=== PATIENT | male | born 1955 | race African-American/Black ===

== ENCOUNTER 2022-03-12 20:31 | Inpatient (IN) | payer OTHER ==
[~2022-03-12] VITALS: Ht 175.3 cm; Wt 75.5 kg
[2022-03-12 20:43] VITALS: BP 118/52
[2022-03-12 21:07] LABS: HEMATOCRIT 22.1 % (42.0-52.0); MEAN CELL VOLUME 86.7 fl (80.0-94.0); MEAN CORPUSCULAR HGB 25.9 pg (27.0-31.0); MEAN CORPUSCULAR HGB CONC 29.9 g/dl (33.0-37.0); MEAN PLATELET VOLUME 11.5 fl (9.6-12.3); PLATELET COUNT AUTOMATED 290 10*3/uL (130-400); RED BLOOD COUNT 2.55 10*6/uL (4.50-5.90); RED CELL DISTRI WIDTH 16.5 % (0-14.5); WHITE BLOOD COUNT 12.1 10*3/uL (4.8-10.8)
[2022-03-12 21:08] LABS: MANUAL DIFF REFLEX YES
[2022-03-12 21:28] LABS: CREATININE 2.02 mg/dL (0.70-1.30); TOTAL PROTEIN 8.8 gm/dL (6.4-8.2)
[2022-03-12 21:29] LABS: BASOPHILS 1 % (0-1); TOTAL CELLS COUNTED 100 #CELLS
[2022-03-12 21:30] LABS: TARGET CELLS FEW
[2022-03-12 21:31] LABS: PLATELET SUFFICIENCY NORMAL (NORMAL)
[2022-03-12 21:36] LABS: POTASSIUM 4.5 mmol/L (3.5-5.1)
[2022-03-12 21:49] LABS: BILIRUBIN Negative (Negative); BLOOD Negative (Negative); CLARITY Clear (Clear); COLOR Yellow (Yellow); GLUCOSE Negative (Negative); KETONE Negative (Negative); LEUKO ESTERASE Negative (Negative); NITRITE Negative (Negative); SPECIFIC GRAVITY 1.015 (1.001-1.030)
[2022-03-12 22:00] LABS: BACTERIA TRACE; EPITHELIAL CELLS 0-2
[2022-03-12 22:54] VITALS: BP 115/58
[2022-03-12 23:23] VITALS: BP 97/49
[2022-03-13] VITALS (21 sets, daily range): BP systolic 90–111; BP diastolic 40–58
[2022-03-13] MEDS ORDERED: AMMONIUM LACTA385 GM T (03:05)
[2022-03-13] MEDS ORDERED: ASPIRIN ADULT L81 M1 PO (03:06)
[2022-03-13] MEDS ORDERED: VITAMIN C500 M8 PO (03:06)
[2022-03-13] MEDS ORDERED: ATORVASTATIN CA40 M1 PO (03:07)
[2022-03-13] MEDS ORDERED: DULCOLAX10 M1 R (03:07)
[2022-03-13] MEDS ORDERED: ELIQUIS5 M1 PO (03:08)
[2022-03-13] MEDS ORDERED: ENOXAPARIN80 MG/0.2 SQ (03:09)
[2022-03-13] MEDS ORDERED: GOOD SENSE ACID20 MG PO (03:09)
[2022-03-13] MEDS ORDERED: FERROUS SU300 MG/5 M PO (03:10)
[2022-03-13] MEDS ORDERED: NATURE'S BLEND F1 MG PO (03:11)
[2022-03-13] MEDS ORDERED: FLEET ENEMA EX230 M1 R (03:11)
[2022-03-13] MEDS ORDERED: HUMALOG100 UNIT/2 SQ (03:12)
[2022-03-13] MEDS ORDERED: KEPPRA500 MG PO (03:13)
[2022-03-13] MEDS ORDERED: Ipratropium Brom3 ML INH (03:13)
[2022-03-13] MEDS ORDERED: NOVOLIN 70100 UNIT/1 SQ (03:14)
[2022-03-13] MEDS ORDERED: MILK OF MA2400 MG/10 PO (03:14)
[2022-03-13] MEDS ORDERED: PEG3350238 GM PO (03:16)
[2022-03-13] MEDS ORDERED: SENNA LAX8.6 M1 PO (03:16)
[2022-03-13] MEDS ORDERED: NATURE'S BLEND100 M2 PO (03:17)
[2022-03-13] MEDS ORDERED: VITAMIN D31250 MCG PO (03:18)
[2022-03-13 05:16] LABS: ABG BASE EXCESS 4.8 mmol/L (-2.0-2.0); ARTERIAL BLOOD GAS PH 7.38 (7.35-7.45); ARTERIAL BLOOD GAS PO2 148.5 (80-90)
[2022-03-13 05:22] LABS: ALKALINE PHOSPHATASE 84 U/L (45-117); BUN 74 mg/dl (7-24); CHLORIDE 101 mmol/L (98-107); CREATININE 1.91 mg/dL (0.70-1.30); FREE T4 1.76 ng/dl (0.76-1.46); SGOT/AST 23 IU/L (3-35); SGPT/ALT 14 U/L (12-78); SODIUM 139 mmol/L (136-145); TRIGLYCERIDES 51 mg/dl (<150)
[2022-03-13 05:27] LABS: CHOLESTEROL < 50 mg/dL (<200); LDL CHOLESTEROL 22 mg/dL (9-159)
[2022-03-13 06:15] LABS: MEAN CELL VOLUME 87.3 fl (80.0-94.0); MEAN CORPUSCULAR HGB 26.2 pg (27.0-31.0); MEAN PLATELET VOLUME 11.6 fl (9.6-12.3); PLATELET COUNT AUTOMATED 282 10*3/uL (130-400); RED BLOOD COUNT 2.29 10*6/uL (4.50-5.90); RED CELL DISTRI WIDTH 16.6 % (0-14.5); WHITE BLOOD COUNT 11.4 10*3/uL (4.8-10.8)
[2022-03-13 06:23] LABS: INTERNATIONAL NORM RATIO 1.1 (2.0-3.5)
[2022-03-13 06:25] LABS: MANUAL DIFF REFLEX YES
[2022-03-13 07:19] LABS: BASOPHILS 1 % (0-1); PLATELET SUFFICIENCY NORMAL (NORMAL); ROULEAUX MODERATE; TOTAL CELLS COUNTED 100 #CELLS
[2022-03-14] VITALS (7 sets, daily range): BP systolic 86–107; BP diastolic 44–65
[2022-03-14 00:50] LABS: BASO % 0.1 % (0.0-1.0); HEMATOCRIT 31.6 % (42.0-52.0); LYMPH % 11.5 % (27.0-41.0); MEAN CELL VOLUME 87.5 fl (80.0-94.0); MEAN CORPUSCULAR HGB 26.6 pg (27.0-31.0); MEAN CORPUSCULAR HGB CONC 30.4 g/dl (33.0-37.0); MONO # 0.3 10*3/uL (0.1-1.0); MONO % 3.5 % (3.0-9.0); NEUT # 7.5 10*3/uL (2.3-7.9); NEUT % 84.5 % (47.0-73.0); PLATELET COUNT AUTOMATED 323 10*3/uL (130-400); RED BLOOD COUNT 3.61 10*6/uL (4.50-5.90); RED CELL DISTRI WIDTH 15.8 % (0-14.5); WHITE BLOOD COUNT 8.9 10*3/uL (4.8-10.8)
[2022-03-14 05:09] LABS: CREATININE 2.22 mg/dL (0.70-1.30); TOTAL PROTEIN 8.3 gm/dL (6.4-8.2)
[2022-03-14 05:11] LABS: POTASSIUM 5.1 mmol/L (3.5-5.1)
[2022-03-14 06:24] LABS: BASO % 0.1 % (0.0-1.0); HEMATOCRIT 28.4 % (42.0-52.0); LYMPH # 0.9 10*3/uL (1.3-4.4); LYMPH % 9.2 % (27.0-41.0); MEAN CELL VOLUME 86.9 fl (80.0-94.0); MEAN CORPUSCULAR HGB 26.6 pg (27.0-31.0); MEAN CORPUSCULAR HGB CONC 30.6 g/dl (33.0-37.0); MEAN PLATELET VOLUME 11.5 fl (9.6-12.3); MONO # 0.7 10*3/uL (0.1-1.0); MONO % 7.5 % (3.0-9.0); NEUT # 7.9 10*3/uL (2.3-7.9); NEUT % 82.6 % (47.0-73.0); PLATELET COUNT AUTOMATED 355 10*3/uL (130-400); RED BLOOD COUNT 3.27 10*6/uL (4.50-5.90); RED CELL DISTRI WIDTH 15.9 % (0-14.5); WHITE BLOOD COUNT 9.5 10*3/uL (4.8-10.8)
[2022-03-15] VITALS: BP 105/72
[2022-03-15 04:00] VITALS: BP 119/67
[2022-03-15 05:12] LABS: CREATININE 2.23 mg/dL (0.70-1.30); TOTAL PROTEIN 8.4 gm/dL (6.4-8.2)
[2022-03-15 05:18] LABS: POTASSIUM 3.8 mmol/L (3.5-5.1)
[2022-03-15 06:22] LABS: BASO % 0.1 % (0.0-1.0); HEMATOCRIT 26.8 % (42.0-52.0); LYMPH % 9.5 % (27.0-41.0); MEAN CORPUSCULAR HGB 26.6 pg (27.0-31.0); MEAN CORPUSCULAR HGB CONC 30.6 g/dl (33.0-37.0); MEAN PLATELET VOLUME 11.2 fl (9.6-12.3); MONO # 1.3 10*3/uL (0.1-1.0); MONO % 11.6 % (3.0-9.0); NEUT # 8.5 10*3/uL (2.3-7.9); NEUT % 77.2 % (47.0-73.0); PLATELET COUNT AUTOMATED 355 10*3/uL (130-400); RED BLOOD COUNT 3.08 10*6/uL (4.50-5.90); RED CELL DISTRI WIDTH 16.2 % (0-14.5)
[2022-03-15 08:00] VITALS: BP 117/67
[2022-03-15 10:28] LABS: ABG BASE EXCESS -1.1 mmol/L (-2.0-2.0); ARTERIAL BLOOD GAS PH 7.39 (7.35-7.45); ARTERIAL BLOOD GAS PO2 75.1 (80-90)
[2022-03-15 12:00] VITALS: BP 121/66
[2022-03-15 15:07] LABS: ANGIOTENSIN-CONVERTING ENZYME 48 U/L (14-82)
[2022-03-15 16:00] VITALS: BP 116/65
[2022-03-15 20:00] VITALS: BP 125/67
== END 2022-03-15 21:26 | disposition hospice, inpatient (51) | DRG 871 ==
LOC: ED 20:31 → ICCU 03-13 01:51 → EDHOLD 03-13 01:51 → ICCU 03-13 02:44 → EDHOLD 03-13 03:13 → ICCU 03-13 03:14
PROVIDERS: Emergency Medicine; Hospitalist; Internal Medicine; Internal Medicine Critical Care Medicine; Internal Medicine Nephrology; Student in an Organized Health Care Education/Training Program; ADMIT Family Medicine; ATTEND Family Medicine
PROC: 5A1945Z Respiratory Ventilation, 24-96 Consecutive Hours (ICD-10-PCS; principal; 2022-03-13)
PROC: 30233N1 Transfusion of Nonautologous Red Blood Cells into Peripheral Vein, Percutaneous Approach (ICD-10-PCS; 2022-03-13)
PROC: 5A09357 Assistance with Respiratory Ventilation, Less than 24 Consecutive Hours, Continuous Positive Airway Pressure (ICD-10-PCS; 2022-03-14)
PROC: 5A1935Z Respiratory Ventilation, Less than 24 Consecutive Hours (ICD-10-PCS; 2022-03-14)
DX: A41.9 Sepsis, unspecified organism (principal); E43 Unspecified severe protein-calorie malnutrition; N17.0 Acute kidney failure with tubular necrosis; J96.21 Acute and chronic respiratory failure with hypoxia; J15.6 Pneumonia due to other Gram-negative bacteria; J96.22 Acute and chronic respiratory failure with hypercapnia; K92.2 Gastrointestinal hemorrhage, unspecified; I48.11 Longstanding persistent atrial fibrillation; Z51.5 Encounter for palliative care; Z66 Do not resuscitate; Z68.24 Body mass index [BMI] 24.0-24.9, adult; R91.8 Other nonspecific abnormal finding of lung field; J84.10 Pulmonary fibrosis, unspecified; D50.9 Iron deficiency anemia, unspecified; E83.52 Hypercalcemia; Z93.0 Tracheostomy status; R65.20 Severe sepsis without septic shock; N18.9 Chronic kidney disease, unspecified; L89.620 Pressure ulcer of left heel, unstageable; L89.610 Pressure ulcer of right heel, unstageable; E11.51 Type 2 diabetes mellitus with diabetic peripheral angiopathy without gangrene; R13.10 Dysphagia, unspecified; I50.9 Heart failure, unspecified; Z93.1 Gastrostomy status; Z79.82 Long term (current) use of aspirin; Z79.899 Other long term (current) drug therapy

== ENCOUNTER 2022-03-15 21:42 | Inpatient (IN) | payer OTHER ==
[~2022-03-15] VITALS: Ht 175.3 cm; Wt 75.3 kg
[~2022-03-15 21:42] MED LIST: AMMONIUM LACTA385 GM T; ASPIRIN ADULT L81 M1 PO; ATORVASTATIN CA40 M1 PO; DULCOLAX10 M1 R; ELIQUIS5 M1 PO; ENOXAPARIN80 MG/0.2 SQ; FERROUS SU300 MG/5 M PO; FLEET ENEMA EX230 M1 R; GOOD SENSE ACID20 MG PO; HUMALOG100 UNIT/2 SQ; Ipratropium Brom3 ML INH; KEPPRA500 MG PO; MILK OF MA2400 MG/10 PO; NATURE'S BLEND F1 MG PO; NATURE'S BLEND100 M2 PO; NOVOLIN 70100 UNIT/1 SQ; PEG3350238 GM PO; SENNA LAX8.6 M1 PO; VITAMIN C500 M8 PO; VITAMIN D31250 MCG PO
[2022-03-15 21:57] VITALS: BP 66/39
== END 2022-03-15 23:40 | DRG 189 ==
LOC: ICCU 21:42
PROVIDERS: ADMIT Family Medicine; ATTEND Family Medicine
DX: J96.90 Respiratory failure, unspecified, unspecified whether with hypoxia or hypercapnia (principal); Z51.5 Encounter for palliative care; E11.9 Type 2 diabetes mellitus without complications; J44.9 Chronic obstructive pulmonary disease, unspecified; Z66 Do not resuscitate; I48.91 Unspecified atrial fibrillation; I10 Essential (primary) hypertension; F03.90 Unspecified dementia, unspecified severity, without behavioral disturbance, psychotic disturbance, mood disturbance, and anxiety